=== PATIENT | male | born 1965 | race Two or more races ===

== ENCOUNTER 2024-05-30 14:51 | Emergency (ER) | payer OTHER, SELFPAY ==
[2024-05-30 15:01] VITALS: BP 142/72; PULSE 65; RESP 18; TEMP 36.7; O2SAT 95; BMI 35.2
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
[2024-05-30 15:18] VITALS: PULSE 75; RESP 18; O2SAT 99
[2024-05-30 16:10] VITALS: BP 131/76; PULSE 64; RESP 16; TEMP 37.2; O2SAT 95
[2024-05-30 17:32] VITALS: BP 128/73; PULSE 62; RESP 18; TEMP 36.7; O2SAT 95
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
== END 2024-05-30 17:34 | disposition home or self-care (01) ==
LOC: SERX 17:31
PROVIDERS: Emergency Provider Emergency Medicine; PCP Family Medicine
DX: S20.219A Contusion of unspecified front wall of thorax, initial encounter (principal); V89.2XXA Person injured in unspecified motor-vehicle accident, traffic, initial encounter; Y92.410 Unspecified street and highway as the place of occurrence of the external cause
CPT/HCPCS: 71046; 99283